=== PATIENT | female | born 1975 | race Caucasian/White ===

== ENCOUNTER 2024-10-06 14:13 | Emergency (ER) | payer BC, SELFPAY ==
[2024-10-06 14:17] VITALS: BP 138/89
[2024-10-06 14:44] LABS: Urine Albumin Negative (Neg - Trace); Urine Bilirubin Negative (Negative); Urine Character Slightly Cloudy (Clear); Urine Color Yellow; Urine Glucose Negative (Negative); Urine Ketone Negative (Negative); Urine Leukocyte Negative (Negative); Urine Nitrite Negative (Negative); Urine Occult Blood 2+ (Negative); Urine Urobilinogen Negative (Neg - 1+)
[2024-10-06 14:45] LABS: % Immature Granulocytes 0.3 % (0-0.5); % Lymphocytes 28.9 % (20.5-51.1); % Neutrophils 56.8 % (42.2-75.2); Absolute Basophils 0.1 10^3/uL (0-0.2); Absolute Eosinophils 0.2 10^3/uL (0-0.7); Absolute Monocytes 0.7 10^3/uL (0.1-0.6); Absolute Neutrophils 3.9 10^3/uL (1.4-6.5); Hematocrit 41.6 % (37.0-47.0); Hemoglobin 13.4 g/dL (12.0-16.0); Mean Corp Hgb Conc. 32.2 g/dL (33.0-37.0); Mean Corpuscular Hgb 29.8 pg (27.0-31.0); Mean Corpuscular Volume 92.7 fL (81.0-99.0); Nucleated Red Blood Cells % 0 %; Platelet Count 301 10^3/uL (130-400); Red Blood Cell Count 4.49 10^6/uL (4.20-5.40); Red Cell Dist. Width 13.6 % (11.5-14.5); White Blood Cell Count 6.9 10^3/uL (4.8-10.8)
[2024-10-06 14:51] LABS: Urine Bacteria Few (Negative); Urine White Cell 0-2 /HPF (0-5)
[2024-10-06 14:52] LABS: Urine Red Blood Cell 0-2 /HPF (0-2)
[2024-10-06 15:11] LABS: HCG, Serum Qualitative Screen Negative
[2024-10-06 15:15] LABS: ALT (SGPT) 18 U/L (0-35); AST (SGOT) 22 U/L (14-36); Albumin 4.7 g/dl (3.5-5.0); Alkaline Phosphatase 65 U/L (38-126); Blood Urea Nitrogen 12 mg/dl (7-17); Calcium 9.8 mg/dl (8.4-10.2); Carbon Dioxide 29 mmol/L (22-30); Chloride 101 mmol/L (98-107); Glucose 92 mg/dl (70-99); Lipase 82 U/L (23-300); Sodium 133 mmol/L (135-145); Total Bilirubin 0.6 mg/dl (0.2-1.3); Total Protein 7.3 g/dl (6.3-8.2); eGFR > 60.00
--- NOTE | 2024-10-06 15:15 | ED.GENMED ---
History of Present Illness
General
Chief Complaint: Flank Pain
Time Seen by Provider: 10/06/24 15:15
History of Present Illness
History of Present Illness:
TIME OF INITIAL ENCOUNTER: 3:15 PM
HPI: Patient presents with right flank pain which radiates toward the midaxillary line. This has been ongoing for the past week and a half or so. She denies any trauma. She is currently on her period (blood noted on urinalysis). No fevers. She
has some mild nausea. Certain position changes and areas to palpate make the pain worse.
EXAM:
GENERAL: Well appearing but appears slightly uncomfortable
HEENT: Moist oral mucosa
CARDIOVASCULAR: No murmurs, normal heart rate, regular rhythm, No chest wall tenderness
PULMONARY: No respiratory distress, breath sounds are clear and equal
ABDOMEN: Soft with no peritoneal signs, no tenderness, mild tenderness in the right CVA region
NEUROLOGIC: Excellent strength all extremities, no coordination deficits
PSYCHIATRIC: Appropriate mental status, normal insight and judgement
EXTREMITIES: Nontender, no edema, moves all extremities equally
SKIN: No rash, no lesions
NUMBER AND COMPLEXITY OF PROBLEMS ADDRESSED AT THE ENCOUNTER
� Chronic conditions affecting care: Has had kidney stones requiring stent, Graves' disease, asthma
� Acute Exacerbation and/or Progression of Chronic Illness: This is an acute problem
� Differential Diagnosis includes: Ureteral stone, pyelonephritis, UTI, musculoskeletal etiology
AMOUNT AND/OR COMPLEXITY OF DATA TO BE REVIEWED AND ANALYZED
� I performed an independent evaluation of and my interpretation is:
EKG:
CT: CT personally viewed�no sign of ureteral stone
X-rays:
Laboratory Studies: CBC and chemistries unremarkable, 2+ blood noted on urinalysis with no evidence of an
Other:
� Review of other/old records: hCG negative, CBC unremarkable, CMP unremarkable, 2+ blood on urinalysis, no evidence for infection on urinalysis
� Clinical information was obtained by an independent historian: None needed
� Prescriptions/Medications Considered but not given: Offered and considered analgesia after the patient declines�she states she recently took ibuprofen
� Further testing considered but not performed: Considered sending back to CT with IV contrast however the small abnormalities were noted bilaterally and were subcentimeter in diameter�very low suspicion that this is the cause of
her pain as the 1 on the left is larger than the 1 in the right and all of her pain is only on the right.
RISK OF COMPLICATIONS AND/OR MORBIDITY OR MORTALITY OF PATIENT MANAGEMENT
� Social determinants of health affecting care: Lives at home
� Discussion with other providers:
� Escalation of care including admission/observation vs risk of discharge considered: Although she appears somewhat uncomfortable, and the patient declines any analgesia or even any Zofran ODT. Will obtain CT imaging. Lives at
home.
ANY OTHER UPDATES:
5:20 PM: I reassessed patient. She continues to appear uncomfortable but declined analgesia. Will try Flexeril. She will continue NSAIDs.
Phy Exam
Physical Exam
Physical Exam:
See HPI
Course
Orders/Labs/Results
Orders:
Orders
10/06/24 14:22
Test Result ONCE
10/06/24 14:34
Complete Blood Count/With Diff Urgent
Comprehensive Metabolic Panel Urgent
HCG, Serum Qualitative Screen Urgent
Lipase Urgent
Urinalysis Reflex To Culture Urgent
Date Specimen was Collected: 10/06/24
Time Specimen was Collected: 14:22
Urine Microscopic Reflex Cult Urgent
10/06/24 15:21
CT Abd/pel Without Iv Or Oral Urgent
Comment:
Reason For Exam: R flank pain; heg hCG
Abnormal Lab Results
10/06/24
14:34
MCHC 32.2 L g/dL
(33.0-37.0)
Absolute Monos (auto) 0.7 H 10^3/uL
(0.1-0.6)
Monocytes % 10.0 H %
(1.7-9.3)
Sodium 133 L mmol/L
(135-145)
Ur Occult Blood Reflex 2+ A
(Negative)
Urine Bacteria (Reflex) Few A
(Negative)
10/06/24 14:34
10/06/24 14:34
Vital Signs
Initial and Last Documented VS:
Initial Vital Signs
Temp Pulse Resp BP Pulse Ox
36.6 C 78 16 138/89 100
10/06/24 14:17 10/06/24 14:17 10/06/24 14:17 10/06/24 14:17 10/06/24 14:17
Last Documented Vital Signs
Temp Pulse Resp BP Pulse Ox
36.6 C 78 16 138/89 100
10/06/24 14:17 10/06/24 14:17 10/06/24 14:17 10/06/24 14:17 10/06/24 14:17
*Critical Care Note
Total Time (30-74mins, 75-104mins- exclusive of procedures): Not Applicable
ED Attending Note
-
Portions of this chart may have been created with voice recognition software.� Occasional wrong word or��sound alike� substitutions may have occurred due to the inherent limitations of voice recognition software.
Discharge Plan
Departure
Patient Disposition: Home (Routine Discharge)
Date of Disposition: 10/06/24
Time of Disposition: 17:22
Patient with high blood pressure during this ER visit?: Yes
Discharge Problem:
Right flank pain
Instructions: Flank Pain (DC), BLOOD PRESSURE
Prescriptions:
New
cyclobenzaprine 10 mg tablet
10 mg PO TID PRN (Reason: pain) Qty: 21 0RF
Referrals:
Abilio Goodwin MD [Family Provider] -
Activity Restrictions/Additional Instructions:
The cause of your pain is unclear. Your white blood cell count and hemoglobin levels are normal. Your kidney function is normal. test is negative. You do have a small amount of blood in the urine. There is no sign of infection in the
urine.
I am sending a prescription for Flexeril to your pharmacy. Continue ibuprofen.
CAT scan report:
Small bilateral nonobstructing renal calculi.
No findings to suggest renal collecting system dilatation. Following the course of the ureters bilaterally markedly limited without gross ureteral dilatation or gross findings to suggest ureteral calculus bilaterally.
Approximate 0.9 cm slightly high attenuation left renal lesion with tiny hypodense central portion, indeterminate on the basis of this study without intravenous contrast. Additional smaller approximate 0.6 cm cortical hypodense upper pole left renal
lesion, also indeterminate. These could represent hyperdense cysts although solid masses cannot be excluded on the basis of this study without intravenous contrast.
Unremarkable appendix.
Discharge Date and Time
Print Language: HEBREW
== END 2024-10-06 17:46 | disposition home or self-care (01) ==
LOC: EMR 14:13
PROVIDERS: Emergency Medicine; EMERGENCY PHYSICIAN Emergency Medicine; FAMILY PHYSICIAN Internal Medicine
DX: R10.9 Unspecified abdominal pain (principal); Z87.442 Personal history of urinary calculi; J45.909 Unspecified asthma, uncomplicated; E05.00 Thyrotoxicosis with diffuse goiter without thyrotoxic crisis or storm
CPT/HCPCS: 99284; 74176; 80053; 81003; 81015; 83690; 84703; 85025